=== PATIENT | female | born 1985 | race Caucasian/White ===

== ENCOUNTER 2019-01-18 10:30 | Emergency (ER) | payer SELFPAY ==
[~2019-01-18] VITALS: Ht 152 cm; Wt 111.3 kg
[2019-01-18] MEDS ORDERED: ORPHENADRINE 60 MG/2 ML (NORFLEX) AMP IM ONE (10:45)
[2019-01-18] MEDS ORDERED: HYDROcodone/APAP 5 MG/325 MG (LORTAB) TAB PO ONE (10:45)
[2019-01-18] MEDS ORDERED: NAPR-1071 PO (10:45)
[2019-01-18] MEDS ORDERED: KETOROLAC 30 MG/ML VIAL IM ONE (10:45)
[2019-01-18] MEDS ORDERED: HYDR-4226 PO (10:45)
--- NOTE | 2019-01-18 10:45 | ED Lower Extremity ---
General Stated Complaint: HIP PAIN Source: patient Exam Limitations: no limitations History of Present Illness Date Seen by Provider: Jan 18, 2019 Time Seen by Provider: 10:40 Initial Comments To ER with reports of right hip pain onset this morning, last week she was having left hip pain. This hip pain begins in the posterior right hip travels down the leg and causes her right foot to feel asleep and if it has a weight attached to it. She denies injury no loss of bowel or bladder control, no loss of sensation of her genitals no fevers and no chills. Onset: this morning Severity: moderate Pain/Injury Location: right hip Method of Injury: fell Modifying Factors: Worse With Movement Allergies and Home Medications Allergies Coded Allergies: No Known Drug Allergies (Unverified , 01/18/19) Patient Home Medication List Home Medication List Reviewed: Yes Review of Systems Constitutional: see HPI EENTM: see HPI Respiratory: no symptoms reported Cardiovascular: no symptoms reported Genitourinary: no symptoms reported Musculoskeletal: see HPI Skin: no symptoms reported Psychiatric/Neurological: No Symptoms Reported Physical Exam Vital Signs Capillary Refill : Height, Weight, BMI Height: '" Weight: lbs. oz. kg; BMI Method: General Appearance: WD/WN, no apparent distress, obese Neck: non-tender, full range of motion Respiratory: lungs clear, normal breath sounds, no respiratory distress, no accessory muscle use Gastrointestinal: normal bowel sounds Hips: right hip pain Legs: bilateral leg non-tender, bilateral leg normal inspection, bilateral leg normal range of motion Knees: bilateral knee non-tender, bilateral knee normal inspection, bilateral knee normal range of motion Ankles: bilateral ankle non-tender, bilateral ankle normal inspection, bilateral ankle normal range of motion Feet: bilateral foot non-tender, bilateral foot normal inspection, bilateral foot normal range of motion; right foot other (able to plantar flex and dorsiflex both feet) Neurologic/Psychiatric: alert, normal mood/affect, oriented x 3 Skin: normal color, warm/dry Progress/Results/Core Measures Results/Orders My Orders Orders - AMINAH GIORDANO APRN Hydrocodone/Apap 5/325 Tablet (Lortab 5 (01/18/19 10:45) Ketorolac Injection (Toradol Injection) (01/18/19 10:45) Orphenadrine Injection (Norflex Injectio (01/18/19 10:45) Departure Impression Primary Impression: Lumbar radiculopathy Disposition: HOME, SELF-CARE Condition: Stable Departure-Patient Inst. Decision time for Depature: 10:44 Referrals: NO,LOCAL PHYSICIAN (PCP/Family) Primary Care Physician Patient Instructions: Radiculopathy Add. Discharge Instructions: 1. It would be a good idea to call [facility] today to make an appointment for follow-up because it may be 1-3 weeks before they can get you in. In the meantime pain medication as directed, rest, return to ER for any concerns. Scripts Naproxen (Naprosyn) 500 Mg Tablet 500 MG PO BID PRN for PAIN-SEVERE, #30 TAB 0 Refills Prov: AMINAH GIORDANO APRN 01/18/19 Hydrocodone/Acetaminophen ([place] 5-325 Tablet) 1 Each Tablet 1 TAB PO Q4-6HR for Pain MDD 10 TABS for 7 Days, #10 TAB Prov: AMINAH GIORDANO APRN 01/18/19 AMINAH GIORDANO APRN Jan 18, 2019 10:45
[2019-01-18 11:04] VITALS: BP 178/111
== END 2019-01-18 11:04 | disposition home or self-care (01) ==
LOC: EDUNIT# 10:30 → ER 10:31
DX: M54.16 Radiculopathy, lumbar region (principal); W19.XXXA Unspecified fall, initial encounter
CPT/HCPCS: 99284

== ENCOUNTER 2019-02-06 22:49 | Emergency (ER) | payer SELFPAY ==
[~2019-02-06] VITALS: Ht 152.4 cm; Wt 136.0 kg
[~2019-02-06 22:49] MED LIST: HYDR-4226 PO; NAPR-1071 PO
[2019-02-07] MEDS ORDERED: LACTATED RINGERS 1,000 ML IV ONE (01:09)
[2019-02-07 01:31] LABS: BASOPHILS % (AUTO) 0 % (0-10); EOSINOPHILS # (AUTO) 0.2 10^3/uL (0.0-0.3); EOSINOPHILS % (AUTO) 2 % (0-10); HEMATOCRIT 38 % (35-52); HEMOGLOBIN 12.7 G/DL (11.5-16.0); LYMPHOCYTES # (AUTO) 2.3 X 10^3 (1.0-4.0); LYMPHOCYTES % (AUTO) 26 % (12-44); MEAN CORPUSCULAR HEMOGLOBIN 28 PG (25-34); MEAN CORPUSCULAR HGB CONC 34 G/DL (32-36); MEAN CORPUSCULAR VOLUME 83 FL (80-99); MEAN PLATELET VOLUME 9.6 FL (7.4-10.4); MONOCYTES % (AUTO) 11 % (0-12); NEUTROPHILS # (AUTO) 5.3 X 10^3 (1.8-7.8); NEUTROPHILS % (AUTO) 60 % (42-75); PLATELET COUNT 438 10^3/uL (130-400); RED CELL DISTRIBUTION WIDTH 13.4 % (10.0-14.5); WHITE BLOOD COUNT 8.9 10^3/uL (4.3-11.0)
[2019-02-07 01:50] LABS: ALANINE AMINOTRANSFERASE 24 U/L (0-55); ALBUMIN 4.3 GM/DL (3.2-4.5); ALKALINE PHOSPHATASE 73 U/L (40-136); AMYLASE 40 U/L (25-125); BILIRUBIN,TOTAL 0.3 MG/DL (0.1-1.0); BUN/CREATININE RATIO 23; CALCIUM 9.6 MG/DL (8.5-10.1); CARBON DIOXIDE 25 MMOL/L (21-32); CHLORIDE 103 MMOL/L (98-107); CREATININE SERUM 0.71 MG/DL (0.60-1.30); GFR ESTIMATED > 60; GLUCOSE 101 MG/DL (70-105); LIPASE 19 U/L (8-78); POTASSIUM 4.2 MMOL/L (3.6-5.0); SODIUM 138 MMOL/L (135-145); TOTAL PROTEIN 7.8 GM/DL (6.4-8.2)
[2019-02-07] MEDS ORDERED: KETOROLAC 30 MG/ML VIAL IVP ONE (02:00)
[2019-02-07] MEDS ORDERED: ORPHENADRINE 60 MG/2 ML (NORFLEX) AMP IVP ONE (02:00)
[2019-02-07 02:03] LABS: AMPHETAMINE SCREEN, URINE NEGATIVE (NEGATIVE); BARBITURATE SCREEN URINE NEGATIVE (NEGATIVE); BENZODIAZEPINES SCREEN URINE NEGATIVE (NEGATIVE); BILIRUBIN,URINE NEGATIVE (NEGATIVE); CANNABINOID SCREEN, URINE NEGATIVE (NEGATIVE); CLARITY,URINE SLIGHTLY CLOUDY; COCAINE SCREEN URINE NEGATIVE (NEGATIVE); COLOR,URINE YELLOW; GLUCOSE, URINE (UA) NEGATIVE (NEGATIVE); KETONES,URINE NEGATIVE (NEGATIVE); LEUKOCYTE ESTERASE ,URINE 2+ (NEGATIVE); METHADONE STAT NEGATIVE (NEGATIVE); METHAMPHETAMINE SCREEN URINE S NEGATIVE (NEGATIVE); NITRITE,URINE NEGATIVE (NEGATIVE); OPIATE SCREEN URINE NEGATIVE (NEGATIVE); OXYCODONE STAT NEGATIVE (NEGATIVE); PH,URINE 6 (5-9); PROPOXYPHENE STAT NEGATIVE (NEGATIVE); PROTEIN,URINE NEGATIVE (NEGATIVE); TRICYCLIC ANTIDEPRESSANTS SCRE NEGATIVE (NEGATIVE)
[2019-02-07 02:04] LABS: BACTERIA,URINE TRACE /HPF; SQUAMOUS EPITHELIAL CELL,UR 25-50 /HPF; TRICHOMONAS,URINE MODERATE /HPF; WBC,URINE 0-2 /HPF
[2019-02-07] MEDS ORDERED: CYCL10TA9 PO (04:03)
[2019-02-07] MEDS ORDERED: METR500T PO (04:03)
[2019-02-07] MEDS ORDERED: PRED5TAB PO (04:03)
[2019-02-07] MEDS ORDERED: LIDO700A45 TP (04:03)
--- NOTE | 2019-02-07 04:04 | ED Back Pain ---
General Chief Complaint: Back Problems Stated Complaint: L RENAL LITHIASIS Nursing Triage Note: PATIENT STATES THAT SHE WAS SEEN IN THIS ER APPROX. 3 WEEKS AGO FOR BACK PAIN AND WAS TOLD SHE HAD A BULGING DISK. SHE FOLLOWED UP WITH [facility] AND WAS TOLD THAT IT "COULD BE NERVE NEUROPATHY". SHE WAS SUPPOSED TO GO BACK TO [facility] FOR FOLLOW-UP ON 03/28 BUT STATES THAT SHE "CANNOT WAIT THAT LONG BECAUSE THE PAIN IS SO BAD". SHE STATES THAT THE PAIN "SHOOTS DOWN HER LEGS, MOSTLY ON HER RIGHT LEG". Nursing Sepsis Screen: No Definite Risk Allergies and Home Medications Allergies Coded Allergies: No Known Drug Allergies (Unverified , 01/18/19) Home Medications Hydrocodone/Acetaminophen 1 Each Tablet, 1 TAB PO Q4-6HR Prescribed by: AMINAH GIORDANO on 01/18/19 1045 Naproxen 500 Mg Tablet, 500 MG PO BID PRN for PAIN-SEVERE Prescribed by: AMINAH GIORDANO on 01/18/19 1045 Past Dcnwzpk-Jcmvwx-Bgvbjb Hx Patient Social History Alcohol Use: Rarely Uses Recreational Drug Use: No Smoking Status: Current Someday Smoker Type Used: Cigarettes Recent Foreign Travel: No Contact w/Someone Who Travel: No Recent Infectious Disease Expo: No Recent Hopitalizations: No Seasonal Allergies Seasonal Allergies: No Past Medical History Abdominal, Section Respiratory: No Cardiac: Yes Hypertension Neuropathy : No Last Menstrual Period: Jan 23, 2019 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 oz. kg; 58.00 BMI Method: Progress/Results/Core Measures Results/Orders Vital Signs/I&O 02/06/19 23:10 Temp 36.9 Pulse 69 Resp 22 B/P (MAP) 146/86 (106) Pulse Ox 100 O2 Delivery Room Air Blood Pressure Mean: 106 Departure Impression Primary Impression: Lumbar back pain with radiculopathy affecting right lower extremity Additional Impression: Trichomoniasis Disposition: 01 HOME, SELF-CARE Condition: Improved Departure-Patient Inst. Referrals: [facility] (PCP/Family) Primary Care Physician Patient Instructions: Trichomoniasis (DC), Low Back Pain (DC), Radiculopathy (DC) Add. Discharge Instructions: BOTH YOU AND YOUR PARTNER NEED TO BE EXAMINED AND TREATED FOR OTHER STD'S MOIST HEAT TO SORE AREAS AT 20 MINUTE INTERVALS INCREASE YOUR GABAPENTIN UP TO 2 PILLS 3 TIMES A DAY FOLLOW UP WITH [facility] THIS WEEK FOR FURTHER CARE All discharge instructions reviewed with patient and/or family. Voiced understanding. Scripts Metronidazole (Flagyl) 500 Mg Tablet 500 MG PO QID for FOR INFECTION, #40 TAB Prov: CAMRON IGNACIO DO 02/07/19 Cyclobenzaprine HCl (Cyclobenzaprine HCl) 10 Mg Tablet 10 MG PO Q8H, #15 TAB Prov: CAMRON IGNACIO DO 02/07/19 Prednisone (Prednisone) 5 Mg Tablet 5 MG PO UD, #78 TAB 12 PILLS DAY 1, THEN DECREASE BY 1 PILL A DAY UNTIL GONE Prov: CAMRON IGNACIO DO 02/07/19 Lidocaine (Lidocaine 5% Patch) 1 Each Adh..patch 1 EACH TP DAILY PRN, #7 PATCH Prov: CAMRON IGNACIO DO 02/07/19 CAMRON IGNACIO DO Feb 07, 2019 04:04
[2019-02-07 04:40] VITALS: BP 134/74
--- NOTE | 2019-02-07 05:56 | Diagnostic Imaging Report ---
INDICATION: Back pain. FINDINGS: 3 views. There is bilateral pars defect of L5 with grade 1 anterolisthesis of L5 on S1. Body heights and disc spaces are well maintained from L1 through L5. The L5-S1 disc space is narrowed. There are no fractures. Pedicles are intact. SI joints are symmetrical. IMPRESSION: Bilateral spondylolysis L5 with grade 1 spondylolisthesis of L5 on S1. Dictated by: Dictated on workstation # [id number]
--- NOTE | 2019-02-07 06:48 | Diagnostic Imaging Report ---
PROCEDURE: CT lumbar spine without contrast. TECHNIQUE: Multiple contiguous axial images were obtained through the lumbar spine without the use of intravenous contrast. Sagittal and coronal reformations were then performed. Auto Exposure Controls were utilized during the CT exam to meet ALARA standards for radiation dose reduction. INDICATION: Low back pain. CORRELATION STUDY: None FINDINGS: Examination is significantly limited by soft tissue attenuation. Reformatted images demonstrate grade 1 spondylolisthesis of approximately 5 mm of L5 on S1. This is owing to a nonacute pars articularis defect. There is associated degenerative changes with vacuum disc phenomenon at L5-S1 level. Likely component of foraminal narrowing. The remaining disc spaces appear fairly well-maintained and the remainder of the alignment is anatomic. IMPRESSION: 1. Bilateral pars articularis defect L5 level with associated grade 1 spondylolisthesis of L5 on S1. Associated degenerative disc disease. Resultant bilateral foraminal narrowing at this level. Dictated by: Dictated on workstation # [id number]
[2019-02-08] MEDS ORDERED: HYDR-4226 PO (10:47)
== END 2019-02-07 04:40 | disposition home or self-care (01) ==
LOC: EDUNIT# 22:49 → ER 22:51 → 4TH 23:41 → UNDOADMOB 23:41 → ER 02-07 04:40
DX: M54.16 Radiculopathy, lumbar region (principal); A59.9 Trichomoniasis, unspecified; I10 Essential (primary) hypertension; G62.9 Polyneuropathy, unspecified; F41.9 Anxiety disorder, unspecified; F32.9 Major depressive disorder, single episode, unspecified; F17.210 Nicotine dependence, cigarettes, uncomplicated; Z98.51 Tubal ligation status
CPT/HCPCS: 36415; 72100; 72131; 80053; 80306; 81000; 82150; 83690; 84703; 85025; 96361; 96374; 96375

== ENCOUNTER 2019-02-08 07:28 | Emergency (ER) | payer SELFPAY ==
[~2019-02-08] VITALS: Ht 152.4 cm; Wt 136.6 kg
[~2019-02-08 07:28] MED LIST changes: +CYCL10TA9 PO; +LIDO700A45 TP; +METR500T PO; +PRED5TAB PO
--- NOTE | 2019-02-08 07:43 | ED Lower Extremity ---
General Chief Complaint: Lower Extremity Stated Complaint: ANKLE PAIN Source: patient, EMS Exam Limitations: no limitations (ELÍAS SWEET) History of Present Illness Date Seen by Provider: Feb 08, 2019 Time Seen by Provider: 07:29 Initial Comments Patient presents to ER by EMS from home with chief complaint of one month of right forefoot pain. She's been told that it was related to a bulging disc in her back caused by a neuropathy and has been on ever increasing doses of gabapentin with no relief. She was on 300 mg 3 times a day and yesterday came to the ER with the same complaint and increased her to 600 mg 3 times a day which she's been using. She was also prescribed steroids which she has not started because afraid it will cause insomnia. She is on naproxen 500 mg twice a day. She has not seen a diversified crops farmer. Her primary care provider is with [facility]. She has been in and out of the ER in clinics for her foot pain. She denies any inciting trauma incident. She says august years ago when she was at teenager she rolled her ankle on the right side but had no fractures or surgeries. She's not having pain in her ankle. She said she is always had some minor swelling right foot compared to left and that has not changed. (ELÍAS SWEET) Allergies and Home Medications Allergies Coded Allergies: No Known Drug Allergies (Unverified , 01/18/19) Home Medications Cyclobenzaprine HCl 10 Mg Tablet, 10 MG PO Q8H Prescribed by: CAMRON IGNACIO on 02/07/19402 Hydrocodone/Acetaminophen 1 Each Tablet, 1 TAB PO Q4-6HR Prescribed by: AMINAH GIORDANO on 01/18/19 1045 Lidocaine 1 Each Adh..patch, 1 EACH TP DAILY PRN Prescribed by: CAMRON IGNACIO on 02/07/19402 Metronidazole 500 Mg Tablet, 500 MG PO QID Prescribed by: CAMRON IGNCAIO on 02/07/19402 Naproxen 500 Mg Tablet, 500 MG PO BID PRN for PAIN-SEVERE Prescribed by: AMINAH GIORDANO on 01/18/19 1045 Prednisone 5 Mg Tablet, 5 MG PO UD 12 PILLS DAY 1, THEN DECREASE BY 1 PILL A DAY UNTIL GONE Prescribed by: CAMRON IGNACIO on 02/07/19402 Patient Home Medication List Home Medication List Reviewed: Yes (ELÍAS SWEET) Review of Systems Constitutional: No chills, No diaphoresis EENTM: No ear discharge, No hearing loss Respiratory: No cough, No short of breath Cardiovascular: No chest pain, No edema Gastrointestinal: No abdominal pain, No nausea Genitourinary: No discharge, No dysuria Control/STD Prophylaxis: Other (tubal ligation) Musculoskeletal: see HPI; No back pain; joint pain (ELÍAS SWEET) Past Svpdkqp-Liqxry-Qxjjyd Hx Patient Social History Alcohol Use: Occasionally Uses Alcohol Beverage of Choice: Beer Recreational Drug Use: No Smoking Status: Current Everyday Smoker Type Used: Cigarettes (one pack per week) Recent Hopitalizations: No (ELÍAS SWEET) Seasonal Allergies Seasonal Allergies: No (ELÍAS SWEET) Past Medical History Abdominal, Section Respiratory: No Cardiac: Yes Hypertension 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 oz. kg; 58.00 BMI Method: General Appearance: mild distress (wailing), obese Neck: full range of motion, normal inspection Cardiovascular: normal peripheral pulses, regular rate, rhythm Respiratory: no respiratory distress, no accessory muscle use Back: normal inspection, no vertebral tenderness; No muscle spasm Hips: bilateral hip non-tender, bilateral hip normal inspection, bilateral hip normal range of motion, bilateral hip no evidence of injury Legs: bilateral leg non-tender, bilateral leg normal inspection, bilateral leg normal range of motion, bilateral leg no evidence of injury Ankles: bilateral ankle non-tender, bilateral ankle normal inspection, bilateral ankle normal range of motion, bilateral ankle no evidence of injury Feet: left foot non-tender; bilateral foot normal inspection, bilateral foot normal range of motion; left foot no evidence of injury; right foot bone tenderness (plantar second and third metatarsal) Neurologic/Tendon: normal sensation, normal motor functions, normal tendon functions, responds to pain, no evidence tendon injury Neurologic/Psychiatric: no motor/sensory deficits, alert, oriented x 3 Skin: normal color, warm/dry (ELÍAS SWEET) Progress/Results/Core Measures Results/Orders Medications Given in ED Current Medications Medications Dose Ordered Sig/Ronni Route Start Time Stop Time Status Last Admin Dose Admin Acetaminophen/ Hydrocodone Bitart 1 tab ONCE ONCE PO 02/08/19 07:45 02/08/19 07:46 DC 02/08/19 07:49 1 TAB (AMINAH GIORDANO APRN) Vital Signs/I&O 02/08/19 07:30 Temp 37.0 Pulse 89 Resp 18 B/P (MAP) 136/86 (103) Pulse Ox 100 (AMINAH GIORDANO APRN) Progress Progress Note : Time: 07:47 Progress Note Patient's not having any organic, reproducible to palpation back pain nor are her symptoms reproduced when we directly palpate over the sciatic nerve pathway. She has pain over the forefoot especially concentrated in the second and third metatarsal distal, plantar head and reproducible to direct palpation. Suspect she has metatarsalgia. Since she is already taking high doses of NSAIDs we'll give her some hydrocodone to help bring her pain under control. CT of the lumbar spine from yesterday demonstrates grade 1 spondylolisthesis of L5 on S1. Associated degenerative disc disease and bilateral foraminal narrowing at this level. This may not explain her symptoms. Suspect that her pain is more organic to ligamentous injury of the foot than from neuropathic. Plan to refer to podiatry. Could do CT imaging of the foot but since this is not an acute injury and there is no evidence of threatened limb instead we will attempt to get her to a pain director internal control and an MRI would probably be far more revealing if they think it's indicated. (ELÍAS SWEET) Departure Communication (Admissions) [id number]-I've seen the patient as well. She has right foot pain 1 month no pr eceding injury. The pain is circumferential dorsal and plantar. It's only the right foot not the left. Strong dorsalis pedis pulse and brisk capillary refill. (AMINAH GIORDANO APRN) Impression Primary Impression: Paresthesia of right foot Disposition: 01 HOME, SELF-CARE Condition: Stable Departure-Patient Inst. Decision time for Depature: 10:46 (AMINAH GIORDANO APRN) Referrals: VENECIA HENRIQUEZ DPM [facility] (PCP/Family) Primary Care Physician ELISA CAIN DPM Patient Instructions: Paresthesias (DC) Add. Discharge Instructions: 1. Return to ER for any concerns 2. Follow-up with one the diversified crops farmer listed All discharge instructions reviewed with patient and/or family. Voiced understanding. Scripts Hydrocodone/Acetaminophen ([place] 5-325 Tablet) 1 Each Tablet 1 TAB PO Q4-6HR for Pain MDD 10 TABS for 7 Days, #10 TAB Prov: AMINAH GIORDANO APRN 02/08/19 ELÍAS SWEET Feb 08, 2019 07:43 AMINAH GIORDANO APRN Feb 08, 2019 10:47
[2019-02-08] MEDS ORDERED: HYDROcodone/APAP 5 MG/325 MG (LORTAB) TAB PO ONE (07:45)
--- NOTE | 2019-02-08 09:39 | Diagnostic Imaging Report ---
INDICATION: Right foot pain. TIME OF EXAM: 09:21 a.m. FINDINGS: Metatarsals are intact. The phalanges appear intact. Midfoot and hindfoot are unremarkable apart from a large plantar calcaneal spur. No fractures are seen. IMPRESSION: No acute bony abnormality is detected. Dictated by: Dictated on workstation # [id number]
[2019-02-08] MEDS ORDERED: HYDR-4226 PO (10:47)
[2019-02-08 10:57] VITALS: BP 136/86
== END 2019-02-08 11:00 | disposition home or self-care (01) ==
LOC: EDUNIT# 07:28 → ER 07:29
DX: R20.2 Paresthesia of skin (principal); I10 Essential (primary) hypertension; G62.9 Polyneuropathy, unspecified; F41.9 Anxiety disorder, unspecified; F32.9 Major depressive disorder, single episode, unspecified; F17.210 Nicotine dependence, cigarettes, uncomplicated; Z98.51 Tubal ligation status
CPT/HCPCS: 73630

== ENCOUNTER → 2019-02-19 | Outpatient (CLI) | payer SELFPAY ==
--- NOTE | 2019-02-19 16:29 | Diagnostic Imaging Report ---
PROCEDURE: MRI lumbar spine. TECHNIQUE: Multiplanar/multisequence MRI of the lumbar spine was performed without contrast. INDICATION: Back pain. FINDINGS: There is bilateral spondylolysis at L5 with grade 1 spondylolisthesis of L5 on S1. The vertebral body heights are well-maintained. There is no other fracture or traumatic subluxation. There are no marrow signal intensity abnormalities. The conus medullaris is seen at L1 and is normal in appearance. The L1-2, L2-3, L3-4, and L4-5 discs are normal in height, signal intensity, and morphology. There is some lower lumbar hypertrophic degenerative facet disease. There is no focal disc extrusion or high-grade spinal stenosis. There is severe bilateral neuroforaminal encroachment at L5-S1. The abdominal aorta is nonaneurysmal. The visualized portions of the kidneys are unremarkable. IMPRESSION: Bilateral spondylolysis at L5 with grade 1 spondylolisthesis of L5 on S1. Additionally, there is severe bilateral neuroforaminal encroachment at this level. Dictated by: Dictated on workstation # [id number]
== END ==
LOC: RAD 13:56
PROVIDERS: ATTEND Physician Assistant
DX: M43.17 Spondylolisthesis, lumbosacral region (principal)
CPT/HCPCS: 72148

== ENCOUNTER 2019-10-26 13:03 | Emergency (ER) | payer SELFPAY ==
[~2019-10-26] VITALS: Ht 152.4 cm; Wt 136.0 kg
--- NOTE | 2019-10-26 13:45 | ED EENT ---
History of Present Illness General Chief Complaint: Dental Problems/Pain Stated Complaint: ABCESS TOOTH ON AMOX Nursing Triage Note: Pt c/o R lower dental abscess. Pt reports taking Amoxicillin since Tuesday and symptoms have worsened. Source: patient Exam Limitations: no limitations History of Present Illness Date Seen by Provider: Oct 26, 2019 Time Seen by Provider: 13:40 Initial Comments To ER with reports of right lower dental abscess. She was seen by Dr. Shane on Tuesday of this week given a prescription for amoxicillin but denies improvement and now has a palpable area of swelling to the lingual surface of the gingiva on the right lower jaw. Timing/Duration: other Severity: moderate Prearrival Treatment: no prearrival treatment Associated Symptoms: facial pain/swelling Allergies and Home Medications Allergies Coded Allergies: No Known Drug Allergies (Unverified , 01/18/19) Home Medications Cyclobenzaprine HCl 10 Mg Tablet, 10 MG PO Q8H Prescribed by: CAMRON IGNACIO on 02/07/19 040 Hydrocodone/Acetaminophen 1 Each Tablet, 1 TAB PO Q4-6HR Prescribed by: AMINAH GIORDANO on 01/18/19 1045 Hydrocodone/Acetaminophen 1 Each Tablet, 1 TAB PO Q4-6HR Prescribed by: AMINAH GIORDANO on 02/08/19 1047 Lidocaine 1 Each Adh..patch, 1 EACH TP DAILY PRN Prescribed by: CAMRON IGNACIO on 02/07/19402 Metronidazole 500 Mg Tablet, 500 MG PO QID Prescribed by: CAMRON IGNACIO on 02/07/19402 Naproxen 500 Mg Tablet, 500 MG PO BID PRN for PAIN-SEVERE Prescribed by: AMINAH GIORDANO on 01/18/19 1045 Prednisone 5 Mg Tablet, 5 MG PO UD 12 PILLS DAY 1, THEN DECREASE BY 1 PILL A DAY UNTIL GONE Prescribed by: CAMRON IGNACIO on 02/07/19402 Patient Home Medication List Home Medication List Reviewed: Yes Review of Systems Review of Systems Constitutional: see HPI Eyes: No Symptoms Reported Ears: No Symptoms Reported Nose: no symptoms reported Mouth: see HPI Throat: no symptoms reported Respiratory: no symptoms reported Cardiovascular: no symptoms reported Musculoskeletal: no symptoms reported Past Guzghxz-Hwtaih-Qifluy Hx Patient Social History Alcohol Use: Occasionally Uses Number of Drinks Today: AA Alcohol Beverage of Choice: Beer Recreational Drug Use: No Smoking Status: Current Everyday Smoker Type Used: Cigarettes 2nd Hand Smoke Exposure: Yes Recent Foreign Travel: No Contact w/Someone Who Travel: No Recent Infectious Disease Expo: No Recent Hopitalizations: No Seasonal Allergies Seasonal Allergies: No Past Medical History Surgeries: Yes ( X 2; VENTRAL HERNIA REPAIR X 2) Abdominal, Section, Tubal Ligation Respiratory: No Cardiac: Yes Hypertension Neurological: Yes Neuropathy Female Reproductive Disorders: 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 oz. kg; 58.00 BMI Method: General Appearance: WD/WN, no apparent distress Eyes: bilateral eye normal inspection, bilateral eye PERRL, bilateral eye EOMI Ears: bilateral ear auricle normal, bilateral ear canal normal, bilateral ear TM normal Mouth/Throat: pharynx normal, dental tenderness, other (there is an abscess between p.m. marble sized to the lingual surface of the gingiva right lower jaw) Neck: non-tender, full range of motion Respiratory: normal breath sounds, no respiratory distress, no accessory muscle use Neurologic/Psychiatric: alert, normal mood/affect, oriented x 3 Skin: normal color, warm/dry Procedures/Interventions I&D : Blade Size: 11 Progress/Results/Core Measures Results/Orders Vital Signs/I&O 10/26/19 13:30 Temp 36.8 Pulse 69 Resp 18 B/P (MAP) 132/89 (103) Pulse Ox 99 O2 Delivery Room Air Blood Pressure Mean: 103 Departure Communication (Admissions) 1417-I&D done. feels smaller she reports. Impression Primary Impression: Dental abscess Disposition: 01 HOME, SELF-CARE Condition: Stable Departure-Patient Inst. Decision time for Depature: 14:18 Referrals: [facility] (PCP/Family) Primary Care Physician Patient Instructions: Tooth Abscess (DC) Add. Discharge Instructions: 1. Stop the amoxicillin 2. Start the clindamycin. Pain medication as directed. Follow-up with bertrand ramírez next week. Return to ER for any concerns. All discharge instructions reviewed with patient and/or family. Voiced understanding. Scripts Clindamycin HCl (Clindamycin HCl) 300 Mg Capsule 300 MG PO TID, #21 CAP Prov: AMINAH GIORDANO APRN 10/26/19 Images Mouth/Nose 1 - Swelling AMINAH GIORDANO APRN Oct 26, 2019 13:45
[2019-10-26] MEDS ORDERED: HYDR-3870 PO (14:19)
[2019-10-26] MEDS ORDERED: CLIN300C11 PO (14:19)
[2019-10-26 14:24] VITALS: BP 132/89
--- OUTSIDE RECORDS SUMMARY | 2019-10-26 16:48 | XMS REPORT | Continuity of Care Document ---
Author Organization Unknown Address Unknown Phone Unavailable Allergies Active Description Code Type Severity Reaction Onset Reported/Identified Relationship to Patient Clinical Status Yes No Known Drug Allergies [id number] Drug Allergy Unknown N/A 01/18/2019 Medications There is no data. Problems Date Dx Coded Attending Type Code Diagnosis Diagnosed By 01/18/2019 AMINAH GIORDANO APRN Ot M25.551 PAIN IN RIGHT HIP 01/18/2019 AMINAH GIORDANO APRN Ot M54.16 RADICULOPATHY, LUMBAR REGION 01/18/2019 AMINAH GIORDANO APRN Ot W19.XXXA UNSPECIFIED FALL, INITIAL ENCOUNTER 01/20/2019 AMINAH GIORDANO APRN Ot M25.551 PAIN IN RIGHT HIP 01/20/2019 AMINAH GIORDANO APRN Ot M54.16 RADICULOPATHY, LUMBAR REGION 01/20/2019 AMINAH GIORDANO APRN Ot W19.XXXA UNSPECIFIED FALL, INITIAL ENCOUNTER 01/25/2019 AMINAH GIORDANO APRN Ot M25.551 PAIN IN RIGHT HIP 01/25/2019 AMINAH GIORDANO APRN Ot M54.16 RADICULOPATHY, LUMBAR REGION 01/25/2019 AMINAH GIORDANO APRN Ot W19.XXXA UNSPECIFIED FALL, INITIAL ENCOUNTER 02/08/2019 AMINAH GIORDANO APRN Ot F17.210 NICOTINE DEPENDENCE, CIGARETTES, UNCOMPL 02/08/2019 AMINAH GIORDANO APRN Ot F32 .9 MAJOR DEPRESSIVE DISORDER, SINGLE EPISOD 02/08/2019 AMINAH GIORDANO APRN Ot F41 .9 ANXIETY DISORDER, UNSPECIFIED 02/08/2019 AMINAH GIORDANO APRN Ot G62 .9 POLYNEUROPATHY, UNSPECIFIED 02/08/2019 AMINAH GIORDANO APRN Ot I10 ESSENTIAL (PRIMARY) HYPERTENSION 02/08/2019 AMINAH GIORDANO APRN Ot R20 .2 PARESTHESIA OF SKIN 02/08/2019 AMINAH GIORDANO APRN Ot Z98.51 TUBAL LIGATION STATUS 02/12/2019 CAMRON IGNACIO DO Ot A59.9 TRICHOMONIASIS, UNSPECIFIED 02/12/2019 CAMRON IGNACIO DO Ot F17.210 NICOTINE DEPENDENCE, CIGARETTES, UNCOMPL 02/12/2019 CAMRON IGNACIO DO Ot F32.9 MAJOR DEPRESSIVE DISORDER, SINGLE EPISOD 02/12/2019 CAMRON IGNACIO DO Ot F41.9 ANXIETY DISORDER, UNSPECIFIED 02/12/2019 CAMRON IGNACIO DO Ot G62.9 POLYNEUROPATHY, UNSPECIFIED 02/12/2019 CAMRON IGNACIO DO Ot I10 ESSENTIAL (PRIMARY) HYPERTENSION 02/12/2019 MATEUS ABARCA CAMRON Langston Ot M54.16 RADICULOPATHY, LUMBAR REGION 02/12/2019 MATEUS ABARCA CAMRON Langston Ot M54.5 LOW BACK PAIN 02/12/2019 MATEUS ABARCA CAMRON Langston Ot Z98.51 TUBAL LIGATION STATUS 02/21/2019 VENECIA BUSTAMANTE Ot M43.17 SPONDYLOLISTHESIS, LUMBOSACRAL REGION Procedures There is no data. Results Test Result Range CULTURE, GENITAL - 01/21/17 18:12 Genital Culture, Routine Final report N RG Result 1 NRG Result 2 Yeast isolated. NRG Result 3 NRG Genital Culture, Routine - 01/21/17 18:1 2 Genital Culture, Routine Note TSH w/ FREE T4 - 01/26/19 08:46 TSH 3.48 mIU/L NRG T4, FREE 1.2 ng/dL 0.8-1.8 CMP - 01/26/19 08:46 GLUCOSE 102 mg/dL 65-99 UREA NITROGEN (BUN) 14 mg/dL 7-25 CREATININE 0.72 mg/dL 0.50-1.10 eGFR NON-AFR. CONGOLESE 108 mL/min/1.73m2 > OR = 60 eGFR 126 mL/min/1.73m2 > OR = 60 BUN/CREATININE RATIO NOT APPLICABLE (calc) 6-22 SODIUM 140 mmol/L 135-146 POTASSIUM 4.3 mmol/L 3.5-5.3 CHLORIDE 105 mmol/L 98-110 CARBON DIOXIDE 29 mmol/L 20-32 CALCIUM 9.1 mg/dL 8.6-10.2 PROTEIN, TOTAL 6.8 g/dL 6.1-8.1 ALBUMIN 3.9 g/dL 3.6-5.1 GLOBULIN 2.9 g/dL (calc) 1.9-3.7 ALBUMIN/GLOBULIN RATIO 1.3 (calc) 1.0-2. 5 BILIRUBIN, TOTAL 0.3 mg/dL 0.2-1.2 ALKALINE PHOSPHATASE 49 U/L 33-115 AST 17 U/L 10-30 ALT 17 U/L 6-29 CBC - 01/26/19 08:46 WHITE BLOOD CELL COUNT 7.4 Thousand/uL 3 .8-10.8 RED BLOOD CELL COUNT 4.34 Million/uL 3.8 0-5.10 HEMOGLOBIN 12.1 g/dL 11.7-15.5 HEMATOCRIT 37.1 % 35.0-45.0 MCV 85.5 fL 80.0-100.0 MCH 27.9 pg 27.0-33.0 MCHC 32.6 g/dL 32.0-36.0 RDW 13.0 % 11.0-15.0 PLATELET COUNT 380 Thousand/uL 140-400 MPV 10.1 fL 7.5-12.5 ABSOLUTE NEUTROPHILS 4988 cells/uL 1500- 7800 ABSOLUTE LYMPHOCYTES 1584 cells/uL 850-3 900 ABSOLUTE MONOCYTES 629 cells/uL 200-950 ABSOLUTE EOSINOPHILS 170 cells/uL 15-500 ABSOLUTE BASOPHILS 30 cells/uL 0-200 NEUTROPHILS 67.4 % NRG LYMPHOCYTES 21.4 % NRG MONOCYTES 8.5 % NRG EOSINOPHILS 2.3 % NRG BASOPHILS 0.4 % NRG ESR/SED RATE - 01/26/19 08:46 SED RATE BY MODIFIED WESTERGREN 9 mm/h < OR = 20 Complete blood count (CBC) with automate d white blood cell (WBC) differential - 02/07/19 01:25 Blood leukocytes automated count (number/volume) 8.9 10*3/uL 4.3-11.0 Blood erythrocytes automated count (number/volume) 4.52 10*6/uL 4.35-5.85 Venous blood hemoglobin measurement (mass/volume) 12.7 g/dL 11.5-16.0 Blood hematocrit (volume fraction) 38 % 35-52 Automated erythrocyte mean corpuscular volume 83 [ foz_us] 80-99 Automated erythrocyte mean corpuscular h emoglobin (mass per erythrocyte) 28 pg 25-34 Automated erythrocyte mean corpuscular h emoglobin concentration measurement (mass/volume) 34 g/dL 32-36 Automated erythrocyte distribution width ratio 13. 4 % 10.0- 14.5 Automated blood platelet count (count/volume) 438 10*3/uL 130-400 Automated blood platelet mean volume measurement 9.6 [foz_us] 7.4-10.4 Automated blood neutrophils/100 leukocytes 60 % 42-75 Automated blood lymphocytes/100 leukocytes 26 % 12-44 Blood monocytes/100 leukocytes 11 % 0-12 Automated blood eosinophils/100 leukocytes 2 % 0-10 Automated blood basophils/100 leukocytes 0 % 0-10 Blood neutrophils automated count (number/volume) 5.3 10*3 1.8-7.8 Blood lymphocytes automated count (number/volume) 2.3 10*3 1.0-4.0 Blood monocytes automated count (number/volume) 1. 0 10*3 0.0-1.0 Automated eosinophil count 0.2 10*3/uL 0 .0-0.3 Automated blood basophil count (count/volume) 0.0 10*3/uL 0.0-0.1 Comprehensive metabolic panel - 02/07/19 01:25 Serum or plasma sodium measurement (moles/volume) 138 mmol/L 135-145 Serum or plasma potassium measurement (moles/volume) 4.2 mmol/L 3.6-5.0 Serum or plasma chloride measurement (moles/volume) 103 mmol/L 98-107 Carbon dioxide 25 mmol/L 21-32 Serum or plasma anion gap determination (moles/volume) 10 mmol/L 5-14 Serum or plasma urea nitrogen measurement (mass/volume ) 16 mg/dL 7-18 Serum or plasma creatinine measurement (mass/volume) 0.71 mg/dL 0.60-1.30 Serum or plasma urea nitrogen/creatinine mass ratio 23 NRG Serum or plasma creatinine measurement w ith calculation of estimated glomerular filtration rate > NRG Serum or plasma glucose measurement (mass/volume) 101 mg/dL 70-105 Serum or plasma calcium measurement (mass/volume) 9.6 mg/dL 8.5-10.1 Serum or plasma total bilirubin measurement (mass/volu me) 0.3 mg/dL 0.1-1.0 Serum or plasma alkaline phosphatase [place] surement (enzymatic activity/volume) 73 U/L 40-136 Serum or plasma aspartate aminotransfera se measurement (enzymatic activity/volume) 22 U/L 5-34 Serum or plasma alanine aminotransferase measurement (enzymatic activity/volume) 24 U/L 0-55 Serum or plasma protein measurement (mass/volume) 7.8 g/dL 6.4-8.2 Serum or plasma albumin measurement (mass/volume) 4.3 g/dL 3.2-4.5 CALCIUM CORRECTED 9.4 mg/dL 8.5-10.1 Serum or plasma amylase measurement (enz ymatic activity/volume) - 02/07/19 01:25 Serum or plasma amylase measurement (enzymatic activit y/volume) 40 U/L 25-125 Lipase - 02/07/19 01:25 Lipase 19 U/L 8-78 Urine drug screening test - 02/07/19 01: 37 Urine phencyclidine detection by screening method NEGATIVE NEGATIVE Urine benzodiazepines detection by screening method NEGATIVE NEGATIVE Urine cocaine detection NEGATIVE NEGATI VE Urine amphetamines detection by screening method N EGATIVE NEGATIVE Urine methamphetamine detection by screening method NEGATIVE NEGATIVE Urine cannabinoids detection by screening method N EGATIVE NEGATIVE Urine opiates detection by screening method NEGATI VE NEGATIVE Urine barbiturates detection NEGATIVE N EGATIVE Screening urine tricyclic antidepressants detection NEGATIVE NEGATIVE Urine methadone detection by screening method NEGA TIVE NEGATIVE Urine oxycodone detection NEGATIVE NEGA TIVE Urine propoxyphene detection NEGATIVE N EGATIVE Complete urinalysis with reflex to cultu re - 02/07/19 01:37 Urine color determination YELLOW NRG Urine clarity determination SLIGHTLY CLOUDY NRG Urine pH measurement by test strip 6 5-9 Specific gravity of urine by test strip 1.015 1.016-1.022 Urine protein assay by test strip, semi-quantitative NEGATIVE NEGATIVE Urine glucose detection by automated test strip NE GATIVE NEGATIVE Erythrocytes detection in urine sediment by light micr oscopy NEGATIVE NEGATIVE Urine ketones detection by automated test strip NE GATIVE NEGATIVE Urine nitrite detection by test strip NEGATIVE NEGATIVE Urine total bilirubin detection by test strip NEGA TIVE NEGATIVE Urine urobilinogen measurement by automated test strip (mass/volume) NORMAL NORMAL Urine leukocyte esterase detection by dipstick 2+ NEGATIVE Automated urine sediment erythrocyte cou nt by microscopy (number/high power field) NONE NRG Automated urine sediment leukocyte count by microscopy (number/high power field) [HPF] NRG Bacteria detection in urine sediment by light microsco py TRACE NRG Squamous epithelial cells detection in u rine sediment by light microscopy 25-50 NRG Crystals detection in urine sediment by light microsco py NONE NRG Casts detection in urine sediment by light microscopy NONE NRG Mucus detection in urine sediment by light microscopy NEGATIVE NRG Complete urinalysis with reflex to culture NO NRG Urine Trichomonas species detection by light microscop y MODERATE NRG Encounters ACCT No. Visit Date/Time Discharge Status Pt. Type Provider Facility Loc./Unit Complaint [id number] 02/27/2019 16:20:00 02/27/2019 23:59: 59 CLS Outpatient VENECIA FITCH [facility] [id number] 01/26/2019 08:40:00 Document Registration [id number] 01/21/2017 17:30:00 Document Registration [id number] 02/19/2019 13:56:00 23:59:59 CLS Outpatient VENECIA BUSTAMANTE [facility] RAD BILAT LOW BACK PAIN [id number] 02/08/2019 07:29:00 11:00:00 DIS Emergency AMINAH GIORDANO APRN [facility] ER ANKLE PAIN [id number] 02/06/2019 22:51:00 04:40:00 DIS Outpatient CAMRON IGNACIO DO, [facility] ER LOWER BACK PAIN [id number] 01/18/2019 10:31:00 11:04:00 DIS Emergency AMINAH GIORDANO APRN [facility] ER HIP PAIN [id number] 01/27/2017 13:06:00 Document Registration
== END 2019-10-26 14:25 | disposition home or self-care (01) ==
LOC: EDUNIT# 13:03 → ER 13:04
DX: K04.7 Periapical abscess without sinus (principal); G62.9 Polyneuropathy, unspecified; G89.29 Other chronic pain; M54.9 Dorsalgia, unspecified; E66.01 Morbid (severe) obesity due to excess calories; F17.210 Nicotine dependence, cigarettes, uncomplicated; Z79.891 Long term (current) use of opiate analgesic; Z79.1 Long term (current) use of non-steroidal anti-inflammatories (NSAID); Z68.43 Body mass index [BMI] 50.0-59.9, adult; Z79.52 Long term (current) use of systemic steroids
CPT/HCPCS: 99282